=== PATIENT | female | born 1980 | race Caucasian/White ===

== ENCOUNTER 2019-05-23 14:46 | Outpatient (CLI) | payer MEDICAID ==
[~2019-05-23] VITALS: Ht 162.6 cm; Wt 76.4 kg
[2019-05-23 15:30] VITALS: BP 112/73; PULSE 72; RESP 18
[2019-05-23 16:03] VITALS: Ht 162.6 cm; Wt 76.4 kg
== END 2019-05-23 18:17 | disposition home or self-care (01) ==
LOC: L-D 14:46 → OBT 14:46 → L-D 15:56 → OBT 18:17
PROVIDERS: ATTEND Obstetrics & Gynecology
DX: O24.410 Gestational diabetes mellitus in pregnancy, diet controlled (principal); Z3A.37 37 weeks gestation of pregnancy
CPT/HCPCS: G0463